=== PATIENT | male | born 1980 | race African-American/Black ===

== ENCOUNTER 2017-12-26 20:58 | Emergency (ER) | payer SELFPAY ==
[2017-12-26] MEDS ORDERED: Ketorolac Tromethamine 30 MG/ML VIAL ONE (22:04)
== END 2017-12-26 23:15 | disposition home or self-care (01) ==
LOC: ERS 20:58
DX: M79.1 Myalgia (principal); V43.62XA Car passenger injured in collision with other type car in traffic accident, initial encounter
CPT/HCPCS: 96372; J1885

== ENCOUNTER 2019-06-21 16:13 | Emergency (ER) | payer BC ==
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
[2019-06-21] MEDS ORDERED: Ketorolac Tromethamine 30 MG/ML VIAL ONE (18:34)
== END 2019-06-21 19:03 | disposition home or self-care (01) ==
LOC: ERS 16:13
DX: S09.90XA Unspecified injury of head, initial encounter (principal); S01.81XA Laceration without foreign body of other part of head, initial encounter; F17.210 Nicotine dependence, cigarettes, uncomplicated; Y04.2XXA Assault by strike against or bumped into by another person, initial encounter
CPT/HCPCS: 70450; 70486; 72125; 96372; J1885

== ENCOUNTER 2019-11-07 20:04 | Emergency (ER) | payer BC, SELFPAY ==
[~2019-11-07 20:04] MED LIST: Iopamidol-370 76% 500 ML 1 ML ONE
[2019-11-07 20:49] LABS: #Basophils 0.1 thou/uL (0.0-0.2); #Lymphocytes 3.4 thou/uL (1.20-3.40); #Monocytes 0.5 thou/uL (0.11-0.59); #Neutrophils 4.1 thou/uL (1.40-6.50); %Basophils 1.2 % (0.0-1.0); %Eosinophils 0.5 % (0.0-10.0); %Lymphocytes 41.9 % (21.0-51.0); %Monocytes 6.3 % (0.0-10.0); %Neutrophils 50.2 % (42.0-75.0); Hemoglobin 14.7 g/dL (14.0-18.0); Mean Corpuscular HGB CONC 34.6 g/dL (32.0-36.0); Mean Corpuscular Hemoglobin 31.8 pg (27.0-31.0); Mean Platelet Volume 7.3 fL (7.4-10.4); Platelet Count 207 thou/uL (130-400); RBC Distribution Width 13.1 % (11.5-14.5); Red Blood Cell (RBC) Count 4.61 mill/uL (4.70-6.10); White Blood Cell (WBC) Count 8.1 thou/uL (4.8-10.8)
[2019-11-07 21:10] LABS: ALT (SGPT) 16 U/L (8-55); AST (SGOT) 20 U/L (5-34); Albumin 4.5 g/dL (3.5-5.0); Alkaline Phosphatase 82 U/L (40-110); Anion Gap 14 mmol/L (10-20); BUN (Urea Nitrogen) 11 mg/dL (8.9-20.6); Bilirubin, Total 0.4 mg/dL (0.2-1.2); Calc. Creatinine Clearance 0 mL/min (70-130); Calcium 9.1 mg/dL (7.8-10.44); Carbon Dioxide 26 mmol/L (22-29); Chloride 104 mmol/L (98-107); Estimated GFR-MDRD 85; Globulin 3.3 g/dL (2.4-3.5); Glucose 92 mg/dL (70-105); Potassium 3.7 mmol/L (3.5-5.1); Protein, Total 7.8 g/dL (6.0-8.3); Sodium 140 mmol/L (136-145)
[2019-11-07] MEDS ORDERED: Lidocaine 1% PF 5 ML VIAL ONE (21:15)
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
== END 2019-11-07 23:18 | disposition home or self-care (01) ==
LOC: ERS 20:04
DX: S11.91XA Laceration without foreign body of unspecified part of neck, initial encounter (principal); F17.210 Nicotine dependence, cigarettes, uncomplicated; X99.8XXA Assault by other sharp object, initial encounter
CPT/HCPCS: 12002; 70498; 80053; 85025; Q9967

== ENCOUNTER 2019-11-16 10:04 | Emergency (ER) | payer SELFPAY | END 2019-11-16 10:45 | disposition home or self-care (01) | LOC: ERS 10:04 | DX: S11.91XD Laceration without foreign body of unspecified part of neck, subsequent encounter (principal); F17.210 Nicotine dependence, cigarettes, uncomplicated ==